=== PATIENT | male | born 1965 | race Caucasian/White ===

== ENCOUNTER 2018-07-10 20:32 | Emergency (ER) | payer MEDICARE, MEDICAID ==
[~2018-07-10] VITALS: Ht 167.6 cm; Wt 118.0 kg
[2018-07-10] MEDS ORDERED: LORazepam 1MG TABLET PO ONE (21:00)
[2018-07-10] MEDS ORDERED: PLEASE ENTER ALLERGIES MC SCH (21:00)
[2018-07-10 21:02] LABS: MICROSCOPIC NOT IND
[2018-07-10 21:13] LABS: BASOPHILS # (AUTO) 0.02 x10^3/uL (0-0.1); BASOPHILS % (AUTO) 0 % (0-1); EOSINOPHILS # (AUTO) 0.26 x10^3/uL (0-0.4); EOSINOPHILS % (AUTO) 3 % (1-7); LYMPHOCYTES # (AUTO) 1.97 x10^3/uL (1-3.4); LYMPHOCYTES % (AUTO) 20 % (22-44); MD NO; MEAN CORPUSCULAR HEMOGLOBIN 29.9 pg (27.5-34.5); MEAN CORPUSCULAR HGB CONC 33.3 g/dL (33.2-36.2); MEAN CORPUSCULAR VOLUME 89.6 fL (81-97); MEAN PLATELET VOLUME 7.4 fL (7.4-10.4); MONOCYTES # (AUTO) 0.78 x10^3/uL (0.2-0.8); MONOCYTES % (AUTO) 8 % (2-9); NEUTROPHILS # (AUTO) 6.85 x10^3/uL (1.8-6.8); NEUTROPHILS % (AUTO) 69 % (42-75); PLATELET COUNT 240 x10^3/uL (130-400); RED BLOOD COUNT 4.91 x10^6/uL (4.38-5.82); RED CELL DISTRIBUTION WIDTH 13.7 % (9.4-14.8)
[2018-07-10 21:15] LABS: AMPHETAMINE SCREEN, URINE Negative (Negative); BARBITURATE SCREEN, URINE Negative (Negative); BENZODIAZEPINE SCREEN, URINE Negative (Negative); CANNABINOID SCREEN, URINE Negative (Negative); COCAINE SCREEN, URINE Negative (Negative); METHADONE SCREEN, URINE Negative (Negative); OPIATE SCREEN, URINE Negative (Negative)
[2018-07-10 21:24] LABS: ACETAMINOPHEN < 2 mcg/mL (10-30); ALANINE AMINOTRANSFERASE 41 U/L (12-78); ALBUMIN 3.4 g/dL (3.4-5.0); ANION GAP 7 mmol/L (5-15); CALCIUM 8.1 mg/dL (8.5-10.1); CHLORIDE 107 mmol/L (98-107); CREATININE 0.92 mg/dL (0.7-1.3); SALICYLATE LEVEL < 1.7 mg/dL (2.8-20.0)
[2018-07-10 21:26] LABS: ALKALINE PHOSPHATASE 93 U/L (45-117); BILIRUBIN,TOTAL 0.3 mg/dL (0.2-1.0); TOTAL PROTEIN 6.2 g/dL (6.4-8.2)
[2018-07-10] MEDS ORDERED: LORazepam 1MG TABLET ONE (21:46)
[2018-07-10] MEDS ORDERED: CLON0.5T20 PO (22:23)
[2018-07-10] MEDS ORDERED: HALO5TAB5 PO (22:23)
[2018-07-11 00:20] VITALS: BP 117/73
== END 2018-07-11 00:50 | disposition home or self-care (01) ==
LOC: ED 21:53
DX: F20.0 Paranoid schizophrenia (principal); F15.159 Other stimulant abuse with stimulant-induced psychotic disorder, unspecified; F17.200 Nicotine dependence, unspecified, uncomplicated
CPT/HCPCS: 36415; 80053; 80307; 80329; 81003; 85025; 99284; G0480

== ENCOUNTER 2020-06-09 21:34 | Emergency (ER) | payer MEDICARE, MEDICAID ==
[~2020-06-09] VITALS: Ht 165.1 cm; Wt 80.0 kg
[~2020-06-09 21:34] MED LIST: CLON0.5T20 PO; HALO5TAB5 PO
[2020-06-09 22:54] VITALS: BP 145/82
--- NOTE | 2020-06-09 22:55 | NUR ---
PT LAID IN GURNEY FOR DURATION OF TIME IN ROOM. RESPIRATIONS EVEN AND UNLABORED, NADN. ERP WAS AT BEDSIDE FOR EVALUATION.
== END 2020-06-09 23:02 | disposition home or self-care (01) ==
LOC: ED 22:49
DX: F20.9 Schizophrenia, unspecified (principal); F17.210 Nicotine dependence, cigarettes, uncomplicated
CPT/HCPCS: 99284; 99406

== ENCOUNTER → 2020-07-31 | Outpatient (CLI) | payer MEDICARE, MEDICAID ==
[~2020-07-31] MED LIST changes: +ARTANE PO; +DIVA250T4 PO; +HALO100A3 IM; +PROP10TA16 PO
== END | disposition home or self-care (01) ==
LOC: STAR 14:26
PROVIDERS: ATTEND Orthopaedic Surgery
DX: Z20.828 Contact with and (suspected) exposure to other viral communicable diseases (principal); M75.52 Bursitis of left shoulder; S46.012A Strain of muscle(s) and tendon(s) of the rotator cuff of left shoulder, initial encounter; S43.432A Superior glenoid labrum lesion of left shoulder, initial encounter; X58.XXXA Exposure to other specified factors, initial encounter; Y93.89 Activity, other specified; Y92.89 Other specified places as the place of occurrence of the external cause; Y99.8 Other external cause status
CPT/HCPCS: 87635

== ENCOUNTER 2020-08-06 09:03 | Day surgery (SDC) | payer MEDICARE, MEDICAID ==
[~2020-08-06] VITALS: Ht 167.6 cm; Wt 117.0 kg
[~2020-08-06 09:03] MED LIST changes: +EPINEPHRINE 1 MG/ML, 1ML ONE; +LIDOCAINE/PF 1%, 30ML ONE
[2020-08-06] MEDS ORDERED: CHLORHEXIDINE 15 ML UDC MM STA (09:36)
[2020-08-06] MEDS ORDERED: CHLORHEXIDINE 15 ML UDC ONE (09:44)
[2020-08-06] MEDS ORDERED: MIDAZOLAM 1 MG/ML, 2ML ONE (09:46)
[2020-08-06] MEDS ORDERED: FENTANYL PF 100 MCG/2ML ONE (09:46)
[2020-08-06] MEDS ORDERED: MEPERIDINE/PF 25MG/0.5ML IVPush PRN (10:00)
[2020-08-06] MEDS ORDERED: HYDROcodone/APAP 7.5-325MG/15ML UDC PO PRN (10:00)
[2020-08-06] MEDS ORDERED: KETOROLAC 30 MG/1 ML IVPush PRN (10:00)
[2020-08-06] MEDS ORDERED: PROMETHAZINE 25 MG/ML, 1ML IVPush PRN (10:00)
[2020-08-06] MEDS ORDERED: OXYcodone 5 MG/5 ML ORAL.SOL UDC PO PRN (10:00)
[2020-08-06] MEDS ORDERED: FENTANYL PF 100 MCG/2ML IV PRN (10:00)
[2020-08-06 10:02] VITALS: BP 115/74
[2020-08-06] MEDS ORDERED: DEXAMETHASONE 4 MG/ML, 1ML ONE (10:29)
[2020-08-06] MEDS ORDERED: hydrALAzine 20 MG/ML, 1ML ONE (10:29)
[2020-08-06] MEDS ORDERED: LACTATED RINGERS 1,000 ML IV SCH (10:30)
[2020-08-06] MEDS ORDERED: CLINDAMYCIN 150 MG/ML, 6ML ONE (10:44)
[2020-08-06] MEDS ORDERED: NEOSTIGMINE 1 MG/ML, 10ML ONE (10:55)
[2020-08-06] MEDS ORDERED: GLYCOPYRROLATE 0.2MG/1ML, 5ML ONE (10:55)
[2020-08-06] MEDS ORDERED: CEFAZOLIN 1,000 MG ONE (10:55)
[2020-08-06] MEDS ORDERED: SUCCINYLCHOLINE 20 MG/ML, 10ML ONE (10:55)
[2020-08-06] MEDS ORDERED: PROPOFOL 10 MG/ML, 20ML ONE (10:55)
[2020-08-06] MEDS ORDERED: ROCURONIUM 10MG/ML,5ML ONE (10:55)
[2020-08-06] MEDS ORDERED: ONDANSETRON 2MG/ML, 2ML ONE (10:55)
[2020-08-06] MEDS ORDERED: OXYcodone 5 MG/5 ML ORAL.SOL UDC ONE (12:21)
[2020-08-06] MEDS ORDERED: HYDROmorphone 1 MG/ML, 1ML INJ ONE (12:27)
[2020-08-06] MEDS: HYDROmorphone 1 MG/ML, 1ML INJ IVPush PRN ×2 (12:29→12:42)
== END 2020-08-06 15:00 | disposition home or self-care (01) ==
LOC: OUT 09:03
PROVIDERS: ATTEND Orthopaedic Surgery
DX: S46.012A Strain of muscle(s) and tendon(s) of the rotator cuff of left shoulder, initial encounter (principal); S43.432A Superior glenoid labrum lesion of left shoulder, initial encounter; M75.42 Impingement syndrome of left shoulder; M75.52 Bursitis of left shoulder; M65.812 Other synovitis and tenosynovitis, left shoulder; G89.18 Other acute postprocedural pain; G47.30 Sleep apnea, unspecified; J45.909 Unspecified asthma, uncomplicated; E66.01 Morbid (severe) obesity due to excess calories; F20.9 Schizophrenia, unspecified; Z79.899 Other long term (current) drug therapy; Z88.6 Allergy status to analgesic agent; Z98.890 Other specified postprocedural states; Z82.61 Family history of arthritis; X58.XXXA Exposure to other specified factors, initial encounter; Y93.89 Activity, other specified; Y92.89 Other specified places as the place of occurrence of the external cause; Y99.8 Other external cause status
CPT/HCPCS: 29823; 29826; 29827; 64415; C1713; J0171; J0330; J0360; J0690; J1100; J1170; J2250; J2405; J2704; J2710; J3010